=== PATIENT | female | born 1965 | race Caucasian/White ===

== ENCOUNTER 2017-04-13 06:20 | Day surgery (SDC) | payer MEDICARE, MEDICAID ==
[2017-04-13] MEDS ORDERED: MIDAZOLAM HCL 2 MG/2 ML SYR IV PRN ×2 (07:08→08:41)
[2017-04-13 07:14] VITALS: TEMP 97.9
[2017-04-13] MEDS ORDERED: FAMOTIDINE IN SALINE, ISO-OSM 20 MG/50 ML PIGGYBACK IV SCH (07:15)
[2017-04-13] MEDS ORDERED: ACETAMINOPHEN 1,000 MG/100 ML VIAL IV SCH (07:15)
[2017-04-13] MEDS ORDERED: BUPIVACAINE HCL/PF 0.25% 10 ML VIAL INJ ONE (07:24)
[2017-04-13] MEDS ORDERED: MIDAZOLAM HCL 2 MG/2 ML VIAL ONE (07:25)
[2017-04-13] MEDS ORDERED: LIDOCAINE HCL 2% 20 ML VIAL ONE (07:31)
[2017-04-13] MEDS ORDERED: FENTANYL 100 MCG/2 ML VIAL ONE (07:34)
[2017-04-13] MEDS ORDERED: LACTATED RINGERS 1,000 ML IV SCH ×3 (08:00→09:00)
[2017-04-13] MEDS ORDERED: EPHEDrine SULFATE 50 MG/ML VIAL ONE (08:05)
[2017-04-13] MEDS ORDERED: FENTANYL 100 MCG/2 ML VIAL IV PRN (08:41)
[2017-04-13] MEDS ORDERED: MORPHINE SULFATE 10 MG/ML SYR IV PRN (08:41)
[2017-04-13] MEDS ORDERED: ONDANSETRON HCL 4 MG/2 ML VIAL IV PRN (08:41)
[2017-04-13 09:11] VITALS: RESP 15
[2017-04-13 09:31] VITALS: BP 90/52; PULSE 78; O2SAT 93
[2017-04-13 09:50] LABS: BASOPHILS 0.3 % (0.0-2.0); EOSINOPHILS 1.4 % (0.0-6.0); EOSINOPHILS# 0.1 X 10^3uL (0.0-0.4); HEMATOCRIT 29.2 % (36.0-48.0); HEMOGLOBIN 9.9 g/dL (12.0-16.0); LYMPHOCYTES 17.5 % (20.0-40.0); LYMPHOCYTES# 1.4 X 10^3uL (0.8-3.8); MEAN CELL VOLUME 92.2 fL (80.0-100.0); MEAN CORPUSCULAR HEMOGLOBIN 31.4 pg (29.0-35.0); MEAN PLATELET VOLUME 6.4 fL (7.4-10.4); MONOCYTES 7.9 % (2.0-10.0); MONOCYTES# 0.7 X 10^3uL (0.2-1.0); NEUTROPHILS 72.9 % (54.0-75.0); PLATELET COUNT 397 X 10^3uL (130-440); RED BLOOD COUNT 3.17 X 10^6uL (4.20-6.10); WHITE BLOOD COUNT 8.2 X 10^3uL (3.9-10.7)
[2017-04-13 10:13] LABS: A/G RATIO 0.9; ALBUMIN 2.7 g/dL (3.5-5.0); ALKALINE PHOSPHATASE 88 U/L (38-126); ALT 33 U/L (9-52); AST 26 U/L (14-36); BILIRUBIN, TOTAL 0.3 mg/dL (0.2-1.3); BLOOD UREA NITROGEN 15 mg/dL (7-17); CALCIUM 9.3 mg/dL (8.4-10.2); CHLORIDE 99 mmol/L (98-107); EST GLOMERULAR FILTRATION RATE > 60 mL/min; GLUCOSE 94 mg/dL (70-100); SODIUM 136 mmol/L (137-145); TOTAL PROTEIN 5.6 g/dL (6.3-8.2)
--- NOTE | 2017-04-16 15:19 | OPERATIVE REPORT ---
Preop diagnosis: Necrotic right buttock decubitus Postoperative diagnosis: Same Procedure performed: Debridement of 15 x 10 cm right buttock decubitus ulcer. Surgeon: Brad Anesthesia: Mac, by Juan Pablo Santiago CRNA Summary: The patient was taken to the operating room. She was placed in the prone position. Her right buttock was prepped with Betadine. The area was sterilely draped. 0.25% Marcaine without epinephrine was infiltrated. Necrotic tissue was debrided with the cutting current. Areas of bleeding were controlled with the cautery. The skin incision had to be opened superiorly as the wound had undermined significantly. Total size of the wound was 10 x 15 cm. When adequate debridement and hemostasis had been achieved, the wound was irrigated with a liter of fluid through the pulse lavage machine. Surgicel was then tucked into areas around the ischial tuberosity. The wound was then packed with alginate. A Tegaderm dressing was applied. The patient was taken from the operating room to the recovery room. She tolerated the procedure well. SARBJIT
--- NOTE | 2017-04-27 10:43 | PREOPERATIVE H&P ---
History of Present Illness (Rafa Salinas M.D.; 04/12/2017 4:11 PM) The patient is a 51 year old female here for wound assessment. Reason for encounter: wound check. The cause of the wound was a decubitus ulcer. Location : right buttock. The wound has been present for 2 months. The course has been worsening. The last tetanus shot was unknown. Current treatment regimen includes: wound vac and clinitron bed.Results of current therapy: worse. The patient has not improved so far on the Clinitron bed and wound VAC. Today I saw her at tried to debride the area but because of bleeding in the area I stopped. She will need a debridement in the operating room. She had spiked a temp earlier today to 101.6. On my exam I find no source for the pain except for the wound. Therefore I think the debridement will be needed sooner. Problem List/Past Medical (Rafa Salinas M.D.; 04/12/2017 4:12 PM) Nausea and/or vomiting (R11.2) Idiopathic hypotension (I95.0) Chronic insomnia (F51.04) Hypokalemia (276.8) (E87.6) Urinary incontinence (788.30) (R32) Bladder mass (596.89) Vision loss, central, bilateral (H53.413) Juxta-central scotomas just to the left of fixation OU (08/03/15). Memory loss due to medical condition (R41.3) Memory loss related to MS. Edema (782.3) (R60.9) Menstrual migraine without status migrainosus, not intractable (G43.829) Cortical age-related cataract, bilateral (H25.013) Early cataracts OU. Neck pain (723.1) (M54.2) Multiple sclerosis exacerbation (340) Atrophic vaginitis (627.3) (N95.2) Synovitis/Tenosynovitis of foot or ankle (M65.9) Weight loss (783.21) (R63.4) Chronic foot pain (M79.673) Muscle spasms of both lower extremities (M62.838) Tendinosis (M67.90) Tenosynovitis (M65.9) Anxiety disorder (300.00) (F41.9) DUB (626.8) Venous insufficiency (459.81) B-complex deficiency (266.2) Depressive disorder (311) (F32.9) Malnutrition (263.9) (E46) Hypertrophic and atrophic condition of skin (701.9) (L91.9, L90.9) Iron deficiency anemia, unspecified iron deficiency anemia type (D50.9) Lateral epicondylitis (726.32) (M77.10) Chronic constipation (K59.09) Acne (706.1) (L70.9) Fatigue (780.79) (R53.83) Urinary retention (R33.9) Decubitus ulcer of right buttock, stage 4 (L89.314) Hypoxemia (R09.02) Chronic pain syndrome (G89.4) Irregular menses (N92.6) Lumbar pain (M54.5) Dry eye, bilateral (H04.123) Severe dysfunctional tear syndrome OU - post lower lid punctal cautery OU. Degeneration of cervical intervertebral disc (722.4) (M50.90) Tachycardia (R00.0) 24 Hour Holter monitor shows NSR with only 1 PVC and 1 PAC. Perimenopausal menorrhagia (N92.4) Muscle atrophy (M62.50) Esophageal reflux (530.81) Spinal stenosis of cervical region (M48.02) C-spine MRI 02/13/12 shows cervical spinal stenosis. Wheelchair dependent (Z99.3) Osteoporosis of lower leg (M81.0) Hip. Thyroid nodule (241.0) (E04.1) Review of Systems (Rafa Salinas M.D.; 04/12/2017 4:12 PM) General Present- Chills and Fever. Not Present- Feeling well. Skin Present- Skin Problems and Ulcer. Neck Not Present- Neck Pain. Respiratory Not Present- Cough, Difficulty Breathing and Shortness of Breath. Cardiovascular Not Present- Chest Pain and Heart Problems. Gastrointestinal Not Present- Abdominal Pain, Bloating and GI Problems. Neurological Present- Neurological Problems (MS). Endocrine Present- Thyroid Problems (She does have thyroid nodule.). Vitals (Rafa Salinas M.D.; 04/12/2017 4:13 PM) 04/12/2017 4:13 PM Temp.: 101.6F Pulse: 68 (Regular) BP: 128/70 (Sitting, Left Arm, Standard) Physical Exam (Rafa Salinas M.D.; 04/12/2017 4:24 PM) Integumentary Assessment of surgical incision: Location - Groin, Buttocks, Genitalia - right buttock. Wound appearance: - Right - consistent with possible early significant wound infection. Note: The wound has a foul odor to it. Superiorly there is a blackened Slimmey necrotic tissue superior in the wound. This has a foul odor to it. It is clearly worse than the last wound VAC change. Chest and Lung Exam Chest and lung exam reveals -Clear. Cardiovascular Cardiovascular examination reveals -RRR, No murmurs present. Abdomen Inspection Inspection of the abdomen reveals - Soft, Non-tender and Bowel sounds present. Contour - Generalized moderate distention. Assessment & Plan (Rafa Salinas M.D.; 04/12/2017 4:29 PM) Multiple sclerosis exacerbation (340) Decubitus ulcer of right buttock, stage 4 (L89.314) Current Plans Debridement of Skin, Subcutaneous Tissue, and Muscle (36735) Excludes Zafar WINSTON MUSC/FASCIA ADD-ON (62475) USE WITH 21294 Note:She is not getting any better so we will plan to do a adequate debridement in the operating room. I will stop the wound VAC overlying this. I don't think the wound VAC is going to work for her. I am optimistic that the Clinitron bed with dressing changes will be healing this. Informed consent was obtained from her. She has signed the consent and agrees to go ahead. Signed by Rafa Salinas M.D. (04/12/2017 4:31 PM) SARBJIT
== END 2017-04-13 09:35 ==
LOC: SDS 06:20
PROVIDERS: ATTEND Surgery
DX: L89.314 Pressure ulcer of right buttock, stage 4 (principal); G35 Multiple sclerosis; E87.6 Hypokalemia; R32 Unspecified urinary incontinence; R41.3 Other amnesia; D50.9 Iron deficiency anemia, unspecified; M77.10 Lateral epicondylitis, unspecified elbow; R53.83 Other fatigue; E46 Unspecified protein-calorie malnutrition; I87.2 Venous insufficiency (chronic) (peripheral); M62.838 Other muscle spasm; R63.4 Abnormal weight loss; R33.9 Retention of urine, unspecified; R09.02 Hypoxemia; G89.4 Chronic pain syndrome; N92.6 Irregular menstruation, unspecified; M54.5 Low back pain; M50.90 Cervical disc disorder, unspecified, unspecified cervical region; M62.50 Muscle wasting and atrophy, not elsewhere classified, unspecified site; K21.9 Gastro-esophageal reflux disease without esophagitis; M81.0 Age-related osteoporosis without current pathological fracture; E04.1 Nontoxic single thyroid nodule; Z99.3 Dependence on wheelchair; Z79.899 Other long term (current) drug therapy
CPT/HCPCS: 36415; 80053; 84134; 85025; 87070; 87077; 87186; 87205; J2250; J3010

== ENCOUNTER 2017-04-15 12:05 | Inpatient (IN) | payer MEDICARE, MEDICAID ==
[2017-04-15] MEDS ORDERED: POLYETHYLENE GLYCOL 3350 17 GM POWD.PACK PO PRN (12:33)
[2017-04-15] MEDS ORDERED: HOME MEDICATION LIST NEEDED 1 EA EACH MC ONE (12:33)
[2017-04-15] MEDS ORDERED: NORMAL SALINE 1,000 ML IV ONE (12:33)
[2017-04-15] MEDS ORDERED: MAG-AL PLUS XS SUSP 30 ML UDC PO PRN (12:33)
[2017-04-15] MEDS ORDERED: ACETAMINOPHEN 325 MG TABLET PO PRN (12:33)
[2017-04-15] MEDS ORDERED: AMPICILLIN/SULBACTAM 1.5 GM/10 ML VIAL IV ONE (13:07)
[2017-04-15] MEDS ORDERED: NORMAL SALINE MINI-BAG+ 100 ML IV ONE (13:09)
[2017-04-15] MEDS ORDERED: POLYVINYL ALCOHOL 1.4% OPHTH 75 DROP/15 ML BTL EACHEYE PRN (13:57)
[2017-04-15] MEDS ORDERED: ONDANSETRON ODT 4 MG TAB.RAPDIS PO PRN (13:57)
[2017-04-15] MEDS ORDERED: CARBAMIDE PEROXIDE 6.5% OTIC 75 DROP/5 ML BTL EACH EAR PRN (13:57)
[2017-04-15] MEDS ORDERED: OXYBUTYNIN CHLORIDE 5 MG TABLET PO PRN (13:57)
[2017-04-15] MEDS ORDERED: DICLOFENAC 1% GEL 100 APP/100 GM TUBE TOPICAL PRN (13:57)
[2017-04-15] MEDS ORDERED: BISACODYL 10 MG SUPP.RECT RECTAL PRN (13:57)
[2017-04-15] MEDS ORDERED: CALCIUM CARBONATE 300 MG TAB.CHEW PO PRN (13:57)
[2017-04-15 14:19] LABS: ALBUMIN 2.8 g/dL (3.5-5.0); AST 24 U/L (14-36); BILIRUBIN, DIRECT 0.3 mg/dL (0.0-0.4); BILIRUBIN, TOTAL 0.3 mg/dL (0.2-1.3); BLOOD UREA NITROGEN 17 mg/dL (7-17); CHLORIDE 99 mmol/L (98-107); EST GLOMERULAR FILTRATION RATE > 60 mL/min; POTASSIUM 4.3 mmol/L (3.5-5.1); TOTAL PROTEIN 6.2 g/dL (6.3-8.2)
[2017-04-15 14:28] LABS: ALKALINE PHOSPHATASE 82 U/L (38-126); ALT 34 U/L (9-52); CALCIUM 9.2 mg/dL (8.4-10.2); GLUCOSE 135 mg/dL (70-100); SODIUM 135 mmol/L (137-145)
[2017-04-15] MEDS: AMPICILLIN/SULBACTAM 1.5 GM in NORMAL SALINE MINI-BAG+ 100 ML IV SCH ×2 (14:30→20:10)
[2017-04-15] MEDS: NORMAL SALINE 1,000 ML IV ONE ×2 (14:30→16:36)
[2017-04-15] MEDS ORDERED: VANCOMYCIN HCL 1,000 MG in NORMAL SALINE ADDVANTAGE 250 ML IV SCH (14:30)
[2017-04-15 14:38] LABS: HEMATOCRIT 28.5 % (36.0-48.0); HEMOGLOBIN 9.8 g/dL (12.0-16.0); MEAN CELL VOLUME 91.2 fL (80.0-100.0); MEAN CORPUS. HGB CONCENTRATION 34.3 g/dL (32.0-36.0); MEAN CORPUSCULAR HEMOGLOBIN 31.3 pg (29.0-35.0); MEAN PLATELET VOLUME 6.4 fL (7.4-10.4); PLATELET COUNT 474 X 10^3uL (130-440); RED BLOOD COUNT 3.12 X 10^6uL (4.20-6.10); RED CELL DISTRIBUTION WIDTH 12.1 % (11.5-14.5); WHITE BLOOD COUNT 13.9 X 10^3uL (3.9-10.7)
[2017-04-15 14:39] LABS: BAND% (Manual) 19 % (0.0-1.0); LYMPHOCYTE % (Manual) 5 % (20.0-40.0); MONOCYTE % (Manual) 10 % (2.0-10.0); NEUTROPHIL % (Manual) 66 % (54.0-75.0); PLATELET ESTIMATE INCREASED
[2017-04-15] MEDS: ACETAMINOPHEN 325 MG TABLET PO PRN (15:14)
[2017-04-15] MEDS: BACLOFEN 10MG TABLET PO SCH ×2 (15:15→18:44)
[2017-04-15] MEDS: VANCOMYCIN HCL 1,000 MG in NORMAL SALINE ADDVANTAGE 250 ML IV SCH (16:15)
[2017-04-15] MEDS: traMADol HCL 50 MG TABLET PO PRN ×2 (17:47→23:41)
[2017-04-15] MEDS: ACETAMINOPHEN 325 MG TABLET PO SCH (20:09)
[2017-04-15] MEDS ORDERED: SERTRALINE HCL 50 MG TABLET PO SCH (21:00)
[2017-04-15] MEDS ORDERED: ZOLPIDEM TARTRATE 5 MG TABLET PO SCH (21:00)
[2017-04-15] MEDS: MINOCYCLINE HCL 50 MG PO SCH (21:16)
[2017-04-15] MEDS: OPANA 10 MG PO SCH (22:19)
[2017-04-15] MEDS: OPANA PO SCH (22:20)
[2017-04-15] MEDS: POTASSIUM CHLORIDE/NS 1,000 MEQ/50,000 ML BAG IV SCH (23:14)
[2017-04-16 00:18] VITALS: RESP 20
[2017-04-16] MEDS: AMPICILLIN/SULBACTAM 1.5 GM in NORMAL SALINE MINI-BAG+ 100 ML IV SCH ×2 (01:27→08:01)
[2017-04-16] MEDS: BACLOFEN 10MG TABLET PO SCH ×4 (01:27→06:55)
[2017-04-16] MEDS: ACETAMINOPHEN 325 MG TABLET PO PRN (01:46)
[2017-04-16] MEDS: VANCOMYCIN HCL 1,000 MG in NORMAL SALINE ADDVANTAGE 250 ML IV SCH (05:25)
[2017-04-16] MEDS: traMADol HCL 50 MG TABLET PO PRN (06:56)
[2017-04-16 06:59] VITALS: BP 81/45; PULSE 104; TEMP 99.6; O2SAT 90
[2017-04-16] MEDS: POTASSIUM CHLORIDE/NS 1,000 MEQ/50,000 ML BAG IV SCH (07:04)
[2017-04-16 07:17] LABS: A/G RATIO 0.8; ALBUMIN 2.8 g/dL (3.5-5.0); ALKALINE PHOSPHATASE 84 U/L (38-126); ALT 38 U/L (9-52); AST 23 U/L (14-36); BILIRUBIN, TOTAL 0.3 mg/dL (0.2-1.3); BLOOD UREA NITROGEN 9 mg/dL (7-17); CALCIUM 8.8 mg/dL (8.4-10.2); CHLORIDE 103 mmol/L (98-107); EST GLOMERULAR FILTRATION RATE > 60 mL/min; GLUCOSE 100 mg/dL (70-100); POTASSIUM 4.4 mmol/L (3.5-5.1); SODIUM 137 mmol/L (137-145); TOTAL PROTEIN 6.2 g/dL (6.3-8.2)
[2017-04-16 07:20] LABS: BASOPHIL# 0.1 X 10^3uL (0.0-0.1); BASOPHILS 0.9 % (0.0-2.0); EOSINOPHILS 1.1 % (0.0-6.0); EOSINOPHILS# 0.1 X 10^3uL (0.0-0.4); HEMATOCRIT 27.4 % (36.0-48.0); HEMOGLOBIN 9.3 g/dL (12.0-16.0); LYMPHOCYTES 17.1 % (20.0-40.0); MEAN CELL VOLUME 92.4 fL (80.0-100.0); MEAN CORPUSCULAR HEMOGLOBIN 31.4 pg (29.0-35.0); MEAN PLATELET VOLUME 6.3 fL (7.4-10.4); MONOCYTES 5.9 % (2.0-10.0); MONOCYTES# 0.7 X 10^3uL (0.2-1.0); NEUTROPHILS# 8.7 X 10^3uL (2.6-6.7); PLATELET COUNT 429 X 10^3uL (130-440); RED BLOOD COUNT 2.97 X 10^6uL (4.20-6.10); RED CELL DISTRIBUTION WIDTH 12.2 % (11.5-14.5); WHITE BLOOD COUNT 11.6 X 10^3uL (3.9-10.7)
--- NOTE | 2017-04-16 08:28 | DC SUMMARY: IM Note ---
Discharge Summary: IM/Peds Provider: Date of Admission: 04/15/17 Admitting Provider: MIN RICHARDSON Attending Provider: CAIN VALLE MD Discharging Provider: CAIN VALLE MD Primary Care Provider: Discharge Date: 04/16/17 Consults: 04/15/17 12:38 Surgical Consult [CONS] Routine Reason: Reassess wound if further debridement needed - Diagnosis (1) Decubitus skin ulcer Status: Chronic Qualifiers: Pressure ulcer location: buttock Pressure ulcer stage: stage 4 Laterality : right Qualified Code(s): L89.314 - Pressure ulcer of right buttock, stage 4 (2) Fever Status: Acute (3) Leukocytosis Status: Acute Qualifiers: Leukocytosis type: bandemia Qualified Code(s): D72.825 - Bandemia (4) Anemia Status: Acute Qualifiers: Anemia type: unspecified type Qualified Code(s): D64.9 - Anemia, unspecified (5) Multiple sclerosis Status: Chronic (6) Malnutrition Status: Chronic (7) Sepsis Status: Acute Qualifiers: Sepsis type: sepsis due to unspecified organism Qualified Code(s): A41.9 - Sepsis, unspecified organism (8) Hypotension Status: Acute (9) Tachycardia Status: Acute (10) Dehydration Status: Acute (11) Chronic pain Status: Chronic (12) UTI (urinary tract infection) Status: Acute Qualifiers: Urinary tract infection type: catheter-associated UTI Indwelling urinary catheter type: indwelling urethral catheter Encounter type: initial encounter Qualified Code(s): T83.511A - Infection and inflammatory reaction due to indwelling urethral catheter, initial encounter; N39.0 - Urinary tract infection , site not specified (13) Urinary retention Status: Acute - Time Spent with Patient Total time spent providing and/or coordinating discharge services: Time with patient DS: Greater than 30 minutes Discharge - Patient/Caregiver Discharge Instructions Activity Level: Bedrest. Diet: Regular. Overall discharge status: patient is not back to baseline Print Language: INDONESIAN Disposition: [facility] Discharge Summary Data - Medication History Medication History: Home Medications Acetaminophen [Tylenol] 325 mg PO Q4H PRN 04/15/17 Baclofen [Lioresal] 10 mg PO BID@0130,1500 04/15/17 Baclofen [Lioresal] 20 mg PO BID@0700,1900 04/15/17 Bisacodyl [Dulcolax] 10 mg LA PRN PRN 04/15/17 Calcium Carbonate [Tums X-Str] 300 - 600 mg PO Q6H PRN 04/15/17 Carbamide Peroxide 6.5% Otic [Debrox 6.5% Otic] 2 drop EACH EAR BID PRN Diclofenac 1% Gel [Voltaren Top Gel 1%*] 1 gm TOPICAL QID PRN 04/15/17 Docusate Sodium [Colace*] 100 mg PO DAILY 04/15/17 Estradiol Vag Cream [Estrace Vag Cr*] 1 gm VAGINALLY 3XW 04/15/17 Ibuprofen [Ibuprofen*] 600 mg PO PRN PRN 04/15/17 Minocycline HCl 50 mg PO BID 04/15/17 Na Phos,M-B/Na Phos,Di-Ba [Fleet Enema] 133 ml LA PRN PRN 04/15/17 Naloxone HCl [Narcan] 0.4 mg SUBCUT PRN PRN 04/15/17 Ondansetron Odt [Zofran Odt] 4 mg PO Q6H PRN 04/15/17 Oxybutynin Chloride [Ditropan*] 5 mg PO DAILY PRN 04/15/17 Oxycodone HCl/Acetaminophen [Percocet 10-325 mg Tablet] 1 tab PO TID@1000,1400, 2000 04/15/17 Oxymorphone HCl [Opana ER] 15 mg PO BID@1000,2200 04/15/17 Polyethylene Glycol 3350 [Miralax*] 1 packet PO HS 04/15/17 Polyvinyl Alcohol 1.4% Ophth [Teargen*] 1 drop EACHEYE PRN PRN 04/15/17 Probiotic [Anahi-Q Capsule] 1 cap PO DAILY 04/15/17 Sertraline HCl [Zoloft*] 100 mg PO HS 04/15/17 Zolpidem Tartrate [Ambien*] 10 mg PO HS 04/15/17 traMADol HCL [Ultram*] 50 mg PO Q4H PRN 04/15/17 Inpatient Medications 04/15/17 12:33 Mag-Al Plus Xs Susp [Maalox Liquid] 30 ml PO Q4H PRN Polyethylene Glycol 3350 [miraLAX] 17 gm PO BID PRN 04/15/17 12:38 Vancomycin Pharmacy To Dose [Vanco Pharmacy To Dose] 1 ea MISC PRN PRN 04/15/17 13:00 Potassium Chloride/Ns [KCl 20 Meq in Ns 1L] 1,000 meq in 50,000 ml IV CONT 04/15/17 13:57 Acetaminophen [Tylenol] 325 mg PO Q4H PRN Bisacodyl [Dulcolax] 10 mg RECTAL PRN PRN Calcium Carbonate [Tums X-Str] 300 - 600 mg PO Q6H PRN Carbamide Peroxide 6.5% Otic [Debrox 6.5% Otic] 2 drop EACH EAR BID PRN Diclofenac 1% Gel [Voltaren Gel 1%] 1 oscar TOPICAL QID PRN Ondansetron Odt [Zofran Odt] 4 mg PO Q6H PRN Oxybutynin Chloride [Ditropan] 5 mg PO DAILY PRN Polyvinyl Alcohol 1.4% Ophth [Teargen] 1 drop EACHEYE PRN PRN traMADol HCL [Ultram] 50 mg PO Q4H PRN 04/15/17 14:00 Ampicillin/Sulbactam [Unasyn] 1.5 gm Normal Saline Mini-Bag+ [Sodium Chloride 100 ml Mini-Bag Plus] 100 ml IV Q6H oxyCODONE HCL IR [Oxy Ir] 10 mg PO TID@1000,1400,199904/15/17 15:00 Baclofen [Lioresal] 10 mg PO BID@0130,1500 04/15/17 17:00 Vancomycin HCl [Vancocin] 1,000 mg Normal Saline Addvantage [Sodium Chloride 0.9% Addv 250 ml] 250 ml IV Q12H 04/15/17 19:00 Baclofen [Lioresal] 20 mg PO BID@0700,1900 04/15/17 20:00 Acetaminophen [Tylenol] 325 mg PO TID@1000,1400,199904/15/17 21:00 Minocycline HCl [Minocycline HCl] 50 mg PO BID Sertraline HCl [Zoloft] 100 mg PO HS Zolpidem Tartrate [Ambien] 10 mg PO HS 04/15/17 22:00 Oxymorphone HCl [Opana ER] 0 mg PO BID@1000,2200 Oxymorphone Hcl [Opana Er] 0 mg PO BID@1000,2200 04/16/17 09:00 Docusate Sodium [Colace] 100 mg PO DAILY Probiotic [Anahi-Q Capsule] 1 cap PO DAILY Procedures and tests throughout hospitalization: Completed Lab Orders 04/15/17 12:33 BASIC METABOLIC PANEL [CHEM] Routine CBC WITHOUT A DIFFERENTIAL [HEM] Routine HEPATIC PANEL [CHEM] Routine MANUAL DIFFERENTIAL [HEM] Routine 04/16/17 06:45 CBC AUTO DIF, MDIF/RMOR IF IND [HEM] AMDRAW cmp [COMPREHENSIVE METABOLIC PANEL] [CHEM] AMDRAW Pending Orders 04/15/17 12:33 Admit: Inpatient Routine Activity: Turn and position Q2H Intake and Output QSHIFT I&O Obtain weight PRN Resuscitation Status Routine Telemetry monitoring CONTINUOUS TELE Titrate Oxygen TITRATE TO >90% Vital Signs ROUTINE VITALS (Q4H) Associate Professor Of Biblical Studies Consult [CM] Routine UA W/ MICRO -CULTURE IF IND [URINE] Routine Mag-Al Plus Xs Susp [Maalox Liquid] 30 ml PO Q4H PRN Polyethylene Glycol 3350 [miraLAX] 17 gm PO BID PRN 04/15/17 12:37 Miscellaneous Care Order . 04/15/17 12:38 NPO After midnight 0000 Surgical Consult [CONS] Routine Vancomycin Pharmacy To Dose [Vanco Pharmacy To Dose] 1 ea MISC PRN PRN 04/15/17 13:00 Potassium Chloride/Ns [KCl 20 Meq in Ns 1L] 1,000 meq in 50,000 ml IV CONT 04/15/17 13:57 Acetaminophen [Tylenol] 325 mg PO Q4H PRN Bisacodyl [Dulcolax] 10 mg RECTAL PRN PRN Calcium Carbonate [Tums X-Str] 300 - 600 mg PO Q6H PRN Carbamide Peroxide 6.5% Otic [Debrox 6.5% Otic] 2 drop EACH EAR BID PRN Diclofenac 1% Gel [Voltaren Gel 1%] 1 oscar TOPICAL QID PRN Ondansetron Odt [Zofran Odt] 4 mg PO Q6H PRN Oxybutynin Chloride [Ditropan] 5 mg PO DAILY PRN Polyvinyl Alcohol 1.4% Ophth [Teargen] 1 drop EACHEYE PRN PRN traMADol HCL [Ultram] 50 mg PO Q4H PRN 04/15/17 14:00 Ampicillin/Sulbactam [Unasyn] 1.5 gm Normal Saline Mini-Bag+ [Sodium Chloride 100 ml Mini-Bag Plus] 100 ml IV Q6H oxyCODONE HCL IR [Oxy Ir] 10 mg PO TID@1000,1400,199904/15/17 14:30 BLOOD CULTURE [BC] Urgent 04/15/17 15:00 Baclofen [Lioresal] 10 mg PO BID@0130,1500 04/15/17 17:00 Vancomycin HCl [Vancocin] 1,000 mg Normal Saline Addvantage [Sodium Chloride 0.9% Addv 250 ml] 250 ml IV Q12H 04/15/17 19:00 Baclofen [Lioresal] 20 mg PO BID@0700,1900 04/15/17 20:00 Acetaminophen [Tylenol] 325 mg PO TID@1000,1400,199904/15/17 21:00 Minocycline HCl [Minocycline HCl] 50 mg PO BID Sertraline HCl [Zoloft] 100 mg PO HS Zolpidem Tartrate [Ambien] 10 mg PO HS 04/15/17 22:00 Oxymorphone HCl [Opana ER] 0 mg PO BID@1000,2200 Oxymorphone Hcl [Opana Er] 0 mg PO BID@1000,2200 04/16/17 09:00 Docusate Sodium [Colace] 100 mg PO DAILY Probiotic [Anahi-Q Capsule] 1 cap PO DAILY 04/16/17 Breakfast Nothing By Mouth [DIET] 04/17/17 04:30 vanco tr [VANCOMYCIN TROUGH] [CHEM] Routine Labs on day of discharge: Labs from last 24 hours 04/16/17 04/15/17 06:45 12:33 WBC 11.6 H 13.9 H RBC 2.97 L 3.12 L Hgb 9.3 L 9.8 L Hct 27.4 L 28.5 L MCV 92.4 91.2 MCH 31.4 31.3 MCHC 34.0 34.3 RDW 12.2 12.1 Plt Count 429 474 H MPV 6.3 L 6.4 L Total Counted 100 Neutrophils % 75.0 Cancelled Neutrophils % (Manual) 66 Band Neuts % (Manual) 19 H Lymphocytes % 17.1 L Cancelled Lymphocytes % (Manual) 5 L Monocytes % (Manual) 10 Eosinophils % 1.1 Cancelled Basophils % 0.9 Cancelled Neutrophils # 8.7 H Cancelled Lymphocytes # 2.0 Cancelled Monocytes 5.9 Cancelled Monocytes # 0.7 Cancelled Eosinophils # 0.1 Cancelled Basophils # 0.1 Cancelled Platelet Estimate Increased Hypochromic-Microcytic 10-19% of cells Anisocytosis 10-19% of cells Sodium 137 135 L Potassium 4.4 4.3 Chloride 103 99 Carbon Dioxide 26 29 BUN 9 17 Creatinine 0.4 L 0.5 GFR Calculation > 60 > 60 Glucose 100 135 H Calcium 8.8 9.2 Total Bilirubin 0.3 0.3 Direct Bilirubin 0.3 AST 23 24 ALT 38 34 Alkaline Phosphatase 84 82 Total Protein 6.2 L 6.2 L Albumin 2.8 L 2.8 L Albumin/Globulin Ratio 0.8 - Impressions Please see admission history and physical for further details. Rosa was admitted yesterday directly from the [facility] for sepsis related to chronic decubitus ulcer right buttock. She had her third debridement of the decubitus ulcer in the OR on 04/13/17 with general surgeon, Dr. Rafa Salinas. She has had fevers to 101.6, chills, and sweats. She has a history of low BPs at her baseline. However despite IVF since admission, her BP this morning is 81 /45 with HR low 100s. Her preliminary wound cultures are growing Group D Non- Enterococcus. Her UCx is growing MRSA. She was started on Vancomycin and Unasyn yesterday with her admission. Her labs revealed leukocytosis with bandemia and a new anemia. Dr. Salinas stated that with each debridement, she has had a lot of bleeding. She has had a history of chroninc malnutrition with a prior baseline albumin 3.2. Her albumin is now 2.8. She has chronic pain related to her MS and is on chronic narcotics. Her pain with the decubitus ulcer has not been well-controlled. I discussion with Rosa and Dr. Salinas, we have determined that Rosa needs to be transferred to [facility] under the care of hospitalists for her sepsis. She will go to the ICU. The wound care team will be consulted. Rosa may require a muscle flap for her decubitus ulcer. We do not have these services available here at [facility]. IM: Discharge Physical Exam - I&O/Vital Signs I&O: Intake & Output 04/15/17 04/16/17 04/16/17 21:59 05:59 13:59 Intake Total 1587 2621 Output Total 950 1550 Balance 637 1071 Intake: IV 827 1621 Right Hand 827 1621 Oral 760 1000 Output: Urine 950 1550 Other: Urine Appearance Clear Clear Urine Color Yellow Yellow Voiding Method Indwelling Catheter Indwelling Catheter Vital Signs: Last Vital Signs Temp 37.6 C 04/16/17 06:58 Pulse 104 H 04/16/17 06:58 Resp 20 04/16/17 06:58 BP 81/45 04/16/17 06:58 Pulse Ox 90 04/16/17 06:58 Oxygen Delivery Method Room Air - Constitutional General appearance: Present: cooperative, acute distress (Secondary to pain and illness. ) - Head Head exam: Present: atraumatic, normocephalic - Eye Eye exam: Present: EOMI, PERRL - ENT ENT exam: Present: mucous membranes dry - Neck Neck exam: Present: other (Decreased ROM at her baseline 2' DDD neck. ). Absent : meningismus - Respiratory Respiratory exam: Present: clear. Absent: accessory muscle use, respiratory distress - Cardiovascular Cardiovascular exam: Present: RRR, tachycardia. Absent: systolic murmur - GI/Abdominal GI/Abdominal exam: Present: normal bowel sounds, soft. Absent: mass, organomegaly, tenderness - Extremities Exam Extremities exam: Present: tenderness (Chroninc BLE pain. ). Absent: calf tenderness, edema - Neurological Exam Neurological exam: Present: alert, CN II-XII intact, oriented X3, other ( Significant atrophy BLE with contractures. ) - Psychiatric Psychiatric exam: Present: anxious, depressed
[2017-04-16] MEDS: ACETAMINOPHEN 325 MG TABLET PO SCH (09:00)
[2017-04-16] MEDS ORDERED: DOCUSATE SODIUM 100 MG CAPSULE PO SCH (09:00)
[2017-04-16] MEDS ORDERED: PROBIOTIC 1 CAP CAPSULE PO SCH (09:00)
[2017-04-16] MEDS: MINOCYCLINE HCL 50 MG PO SCH (09:02)
[2017-04-16 09:04] LABS: C-REACTIVE PROTEIN > 90.0 mg/L (<10.0)
[2017-04-16] MEDS: OPANA PO SCH (09:04)
[2017-04-16] MEDS: OPANA 10 MG PO SCH (09:04)
[2017-04-16 09:05] LABS: C-REACTIVE PROTEIN > 90.0 mg/L (<10.0)
[2017-04-16] MEDS ORDERED: NOREPINEPHRINE BITARTRATE 4 MG/4 ML VIAL IV ONE (09:41)
[2017-04-16] MEDS ORDERED: NORMAL SALINE 250 ML IV ONE (09:42)
--- NOTE | 2017-04-16 09:53 | OPERATIVE REPORT ---
History of Present Illness (Rafa Salinas M.D.; 04/12/2017 4:11 PM) The patient is a 51 year old female here for wound assessment. Reason for encounter: wound check . The cause of the wound was a decubitus ulcer . Location: right buttock . The wound has been present for 2 months . The course has been worsening . The last tetanus shot was unknown . Current treatment regimen includes: wound vac and other (clinitron bed.) . Results of current therapy: worse . The patient has not improved so far on the Clinitron bed and wound VAC. Today I saw her at tried to debride the area but because of bleeding in the area I stopped. She will need a debridement in the operating room. She had spiked a temp earlier today to 101.6. On my exam I find no source for the pain except for the wound. Therefore I think the debridement will be needed sooner. Problem List/Past Medical (Rafa Salinas M.D.; 04/12/2017 4:12 PM) Nausea and/or vomiting (R11.2) Falls frequently (V15.88) Idiopathic hypotension (I95.0) Specific muscle disorder (728.3) Chronic insomnia (F51.04) Blister of left foot, initial encounter (S90.822A) Hypokalemia (276.8) (E87.6) Urinary incontinence (788.30) (R32) Bladder mass (596.89) Vision loss, central, bilateral (H53.413) Juxta-central scotomas just to the left of fixation OU (08/03/15). Memory loss due to medical condition (R41.3) Memory loss related to MS. Edema (782.3) (R60.9) Menstrual migraine without status migrainosus, not intractable (G43.829) Cortical age-related cataract, bilateral (H25.013) Early cataracts OU. Neck pain (723.1) (M54.2) Urinary tract infection associated with catheterization of urinary tract, unspecified indwelling urinary catheter type, sequela (T83.511S) Pneumonia of lower lobe due to infectious organism, unspecified laterality ( J18.1) Myositis of left foot, unspecified myositis type (M60.872) 06/22 MRI left foot shows myositis, probabaly inflammatory type, of left foot with associated tendonosis and muscle atrophy. Multiple sclerosis exacerbation (340) Atrophic vaginitis (627.3) (N95.2) Synovitis/Tenosynovitis of foot or ankle (M65.9) Weight loss (783.21) (R63.4) Chronic foot pain (M79.673) Muscle spasms of both lower extremities (M62.838) Tendinosis (M67.90) Tenosynovitis (M65.9) Anxiety disorder (300.00) (F41.9) DUB (626.8) Venous insufficiency (459.81) Decubitus ulcer of coccygeal region, unspecified pressure ulcer stage (L89.159) Chronic nonmalignant pain (G89.29) Exposure to influenza (Z20.828) B-complex deficiency (266.2) Depressive disorder (311) (F32.9) Malnutrition (263.9) (E46) Hypertrophic and atrophic condition of skin (701.9) (L91.9, L90.9) Iron deficiency anemia, unspecified iron deficiency anemia type (D50.9) Lateral epicondylitis (726.32) (M77.10) Chronic constipation (K59.09) Acne (706.1) (L70.9) Fatigue (780.79) (R53.83) Aspiration pneumonia of left lower lobe due to regurgitated food (J69.0) Urinary retention (R33.9) Suspected deep tissue injury of unknown depth (T14.8) Right ischial tuberosity. Abnormal thyroid screen (blood) (R94.6) Rotator cuff strain (840.4) Decubitus ulcer of right buttock, stage 4 (L89.314) Stress fracture of tibia or fibula (733.93) Accessory skin tags (757.39) Hypoxemia (R09.02) Chronic pain syndrome (G89.4) Irregular menses (N92.6) Healing pressure ulcer stage I (707.00) Lumbar pain (M54.5) Dry eye, bilateral (H04.123) Severe dysfunctional tear syndrome OU - post lower lid punctal cautery OU. Degeneration of cervical intervertebral disc (722.4) (M50.90) Tachycardia (R00.0) 24 Hour Holter monitor shows NSR with only 1 PVC and 1 PAC. Perimenopausal menorrhagia (N92.4) Muscle atrophy (M62.50) Esophageal reflux (530.81) Dehydration (E86.0) Spinal stenosis of cervical region (M48.02) C-spine MRI 02/13/12 shows cervical spinal stenosis. Yeast vaginitis (112.1) Wheelchair dependent (Z99.3) Osteoporosis of lower leg (M81.0) Hip. Contraceptive surveillance, unspecified (V25.40) Closed fractures of fourth and fifth meatatarsals (825.25) (S92.353A) Irritable colon (564.1) Carpal tunnel syndrome (354.0) (G56.00) Pressure ulcer of hip (707.04) Altered mental status, unspecified altered mental status type (R41.82) Hypotension due to drugs (I95.2) Thyroid nodule (241.0) (E04.1)07/21/201307/20 Thyroid U/S shows thyroid is normal sized with 0.9cm indeterminant mixed echogenic nodule of inferior pole of left lobe. Surgical consult, Dr. Salinas who recommends yearly thyroid U/S and exams. 01/22: Repeat thyroid ultrasound shows nodule has decreased in size. It does not need criteria for biopsy. No further thyroid ultrasounds are needed. Review of Systems (Rafa Salinas M.D.; 04/12/2017 4:12 PM) General Present- Chills and Fever. Not Present- Feeling well. Skin Present- Skin Problems and Ulcer. Neck Not Present- Neck Pain. Respiratory Not Present- Cough, Difficulty Breathing and Shortness of Breath. Cardiovascular Not Present- Chest Pain and Heart Problems. Gastrointestinal Not Present- Abdominal Pain, Bloating and GI Problems. Neurological Present- Neurological Problems (MS). Endocrine Present- Thyroid Problems (She does have thyroid nodule.). Vitals (Rafa Salinas M.D.; 04/12/2017 4:13 PM) 04/12/2017 4:13 PM Temp.: 101.6F Pulse: 68 (Regular) BP: 128/70 (Sitting, Left Arm, Standard) Physical Exam (Rafa Salinas M.D.; 04/12/2017 4:24 PM) Integumentary Assessment of surgical incision: Location - Groin, Buttocks, Genitalia - right buttock. Wound appearance: - Right - consistent with possible early significant wound infection. Note: The wound has a foul odor to it. Superiorly there is a blackened Slimmey necrotic tissue superior in the wound. This has a foul odor to it. It is clearly worse than the last wound VAC change. Chest and Lung Exam Chest and lung exam reveals -Clear. Cardiovascular Cardiovascular examination reveals -RRR, No murmurs present. Abdomen Inspection Inspection of the abdomen reveals - Soft, Non-tender and Bowel sounds present. Contour - Generalized moderate distention. Assessment & Plan (Rafa Salinas M.D.; 04/12/2017 4:29 PM) Multiple sclerosis exacerbation (340) Decubitus ulcer of right buttock, stage 4 (L89.314) Current Plans Debridement of Skin, Subcutaneous Tissue, and Muscle (08930) Excludes Zafar WINSTON MUSC/FASCIA ADD-ON (88923) USE WITH 50637 Note:She is not getting any better so we will plan to do a adequate debridement in the operating room. I will stop the wound VAC overlying this. I don't think the wound VAC is going to work for her. I am optimistic that the Clinitron bed with dressing changes will be healing this. Informed consent was obtained from her. She has signed the consent and agrees to go ahead. Signed by Rafa Salinas M.D. (04/12/2017 4:31 PM) [id number]
[2017-04-16] MEDS ORDERED: NORMAL SALINE 500 ML IV ONE (09:57)
[2017-04-16 10:04] LABS: LACTATE 0.5 mmol/L (0.7-2.1)
[2017-04-16 10:17] LABS: ERYTHROCYTE SEDIMENTATION RATE 68 MM/HR (0-20)
[2017-04-16] MEDS ORDERED: ONDANSETRON HCL 4 MG/2 ML VIAL ONE (10:19)
--- NOTE | 2017-04-16 11:32 | HISTORY & PHYSICAL ---
History of Present Illness (Marjorie Law DO; 04/15/2017 12:12 PM) Patient words: CC: wound infection HPI: Patient is a 51 yo F who has been at [facility] for last 5 years related to progressive MS. She has had a wound on her right buttock since January that has been treated with a wound vac. On the wound noted to be worsening and patient was febrile to 101.6. She was subsequently taken to OR on 04/13 for further surgical debridement, cultures done at that time. No antibiotics have been started however at this time. Today when nursning came to assess she noted significant drainage from wound with odor. Patient continues to have low grade temperature. Her blood pressure is slighty lower than typical for her and her heart rate is slightly higher. Nursing contacted me for concern patient may be showing signs of sepsis. Rosa states overall she has been feeling ill. Much more uncomfortable than typical- having slight headache/neck pain. On with her fever she was noted to be posturing somewhat and having some difficulties breathing (resolved quickly). has been on regular tylenol use and continues to run temperature of 99.9. Agree that transition to med surg for fluid hydration/empric antibiotics is recommended prior to symptoms getting any worse. Culture from Sunday is growing large amount of gram positive cocci (gram stain with both gram positive and gram negative)- final sensitivites not available. Labs from Sunday did also demonstrate anemia (Dr. Salinas did mention bleeding with procedure). Will need follow up CBC as progressive anemia could defentily explain hypotension and tachycardia as well. The patient is a 51 year old female. Problem List/Past Medical (Marjorie Law DO; 04/15/2017 12:16 PM) Decubitus ulcer of right buttock, stage 4 (L89.314) Hypotension due to drugs (I95.2) Osteoporosis of lower leg (M81.0) Hip. Spinal stenosis of cervical region (M48.02) C-spine MRI 02/13/12 shows cervical spinal stenosis. Dehydration (E86.0) Muscle atrophy (M62.50) Tachycardia (R00.0) 24 Hour Holter monitor shows NSR with only 1 PVC and 1 PAC. Degeneration of cervical intervertebral disc (722.4) (M50.90) Lumbar pain (M54.5) Chronic pain syndrome (G89.4) Hypoxemia (R09.02) Urinary retention (R33.9) Fatigue (780.79) (R53.83) Malnutrition (263.9) (E46) Hypertrophic and atrophic condition of skin (701.9) (L91.9, L90.9) Iron deficiency anemia, unspecified iron deficiency anemia type (D50.9) Depressive disorder (311) (F32.9) Chronic insomnia (F51.04) Myositis of foot (M60.879) Neck pain (M54.2) Allergies (Marjorie Law DO; 04/15/2017 12:16 PM) No Known Drug Mqceabevb00/19/2015 Family History (Marjorie Law DO; 04/15/2017 12:16 PM) Mother Healthy: Vishal in [place] No Significant Family Ocular History Sister Renée in [place]: [place] Father Healthy: Al in [place] Family Members In General paternal uncle-colon ca-mid 60's; No HTN, CAD, DM, Breast Social History (Marjorie Law DO; 04/15/2017 12:16 PM) Tobacco Use Former smoker, Age quit smoking. 41 Alcohol Use Does not drink alcohol. Marital status Single Medication History (Marjorie Law DO; 04/15/2017 12:16 PM) Ambien (10MG Tablet, 1 Oral Each evening as needed, Taken starting 10/16/2016) Active. (Faxed to [facility] at [phone]. [facility].) Tri-Sprintec (0.18/0.215/0.25MG-35 MCG Tablet, 1 Oral daily, Taken starting ) Active. Baclofen (20MG Tablet, 1 Oral three times daily, Taken starting 08/27/2012) Active. (faxed to [facility]. New dose confirmed with Dr. Scuhmacher.) Zoloft (100MG Tablet, 1 Oral daily, Taken starting 11/05/2013) Active. Valium (5MG Tablet, 1 Oral three times daily, Taken starting 03/27/2016) Active. (Faxed to [facility] at [phone], with Dr. Law's signature on 03/25/2016. hair specialist care pt. Diagnosis: Multiple sclerosis (340) (G35)) Percocet (10-325MG Tablet, 1 Oral every four to six hours as needed for pain, Taken starting 03/28/2017) Active. (faxed to [facility] at [phone]) OxyCODONE HCl (5MG Tablet, 1 Oral every 4 hours as needed pain, Taken starting 06/19/2016) Active. ([facility] care facility) Calcium Carbonate (600MG Tablet, 1 (one) Tablet Oral daily, Taken starting ) Active. ([facility]ed to [facility] at [phone].) Opana ER (10MG Tab 12HR Deter, 1 (one) Oral two times daily, Taken starting 04/2017) Active. (Take with Opana ER 5mg tablet twice daily. Faxed to [facility] at [phone]. Dr. Law covering for Dr. Youngblood.) Opana ER (5MG Tab 12HR Deter, 1 (one) Oral two times daily, Taken starting ) Active. (Please take with Opana ER 10mg twice daily Faxed to [facility] at [phone]) Estrace (0.1MG/GM Cream, 1 (one) gram Vaginal per vagina 3 times per week., Taken starting 10/19/2015) Active. TraMADol HCl (50MG Tablet, 1 tablet Oral every 4 hours as needed, max is 400 mg daily, Taken starting 04/11/2017) Active. (faxed to [facility].) Artificial Tears (Allscrips) (1 drop both eyes Ophthalmic four times daily and prn) Active. [place] Calcium + D ([id number]-[id number] Tablet, Oral) Active. Debrox (6.5% Solution, Otic) Active. Ferrous Sulfate (325 (65 Fe)MG Tablet, Oral) Active. Gabapentin (300MG Capsule, Oral) Active. Ibuprofen (200MG Capsule, Oral as needed) Active. Voltaren (1% Gel, Transdermal) Active. Colace (100MG Capsule, 1 Oral at bedtime) Active. Cranberry Fruit (475MG Capsule, 1 tablet Oral daily) Active. Ensure Plus (1 can Oral two times daily) Active. Fleets Enema (OTC) as needed (per rectum as needed) Active. Anahi-Q ( L.acidoph & parac-s.therm-bif (OTC) (1 tablet daily) Active. Minocycline HCl (50MG Capsule, 1 Oral two times daily) Active. MiraLax (1 in 8oz water Oral two times daily, as needed) Active. Past Surgical History (Marjorie Law DO; 04/15/2017 12:16 PM) Right cervical laser the late Cervical dyspasia: All F/U paps nl Review of Systems (Marjorie Law DO; 04/15/2017 12:15 PM) General Present- Chills, Fatigue and Malaise. Not Present- Feeling well and Fever. Skin Present- Ulcer. HEENT Present- Headache. Not Present- Nasal Congestion, Sore Throat and Visual Disturbances. Neck Present- Neck Pain. Respiratory Not Present- Cough and Shortness of Breath. Cardiovascular Not Present- Abnormal Blood Pressure, Chest Pain and Edema. Gastrointestinal Present- Nausea. Not Present- Abdominal Pain, Constipation and Diarrhea. Note: decreased appetite Female Genitourinary Not Present- Dysuria (chronic hernandez) and Hematuria. Musculoskeletal Present- Back Pain, Joint Pain and Muscle Pain. Neurological Present- Weakness In Extremities. Not Present- Dizziness. Note: no change from baseline neurological concerns Endocrine Not Present- Cold Intolerance and Heat Intolerance. Hematology Not Present- Abnormal Bleeding (surgeon did not more than anticipated blood loss with procedure) and Easy Bruising. Vitals (Marjorie Law DO; 04/15/2017 12:17 PM) 04/15/2017 12:17 PM Temp.: 99.1F Pulse: 107 (Regular) P.OX: 90% (Room air) BP: 89/57 (Sitting, Left Arm, Standard) PPLC vitals Physical Exam (Marjorie Law DO; 04/15/2017 2:58 PM) General Mental Status-Alert. General Appearance-Cooperative, Not in acute distress and Sickly. Hydration-Dehydrated(mild). Integumentary Assessment of surgical incision: Location - Groin, Buttocks, Genitalia - right buttock. Wound appearance: - Right - Note: large open wound right buttocks- malodorous when removed outer dressing. yellow/green tissue on packing and surrounding tissue. Skin surround wound without significant erythema. Did not repack wound as was done this morning. Redressed with alganate and tegaderm. Head and Neck Head-normocephalic, atraumatic with no lesions or palpable masses. Neck Normal Exam - No Lymphadenopathy. Global Assessment - mildly tender(paraspinal muscles). Eye Normal Exam-Extraocular movements intact and Conjunctiva normal. ENMT Mouth and Throat Oral Cavity/Oropharynx - Oral Mucosa - dry(mild). Oropharynx - No pharyngeal erythema, no evidence of airway distress observed. Chest and Lung Exam Chest and lung exam reveals -quiet, even and easy respiratory effort with no use of accessory muscles, No rales, ronchi, wheezes. Cardiovascular Cardiovascular examination reveals -No murmurs present. Auscultation Rhythm - Tachycardic(mildly). Heart Sounds - S1 WNL and S2 WNL. Abdomen Palpation/Percussion Palpation and Percussion of the abdomen reveal - Soft and Non Tender. Female Genitourinary Note: hernandez Peripheral Vascular Lower Extremity Palpation - Edema - Bilateral - No edema. Neurologic Note: Obvious muscle atrophy, limited use of hands, no motor strength in bilateral lower extremities, feet in socks Neuropsychiatric Mental status exam performed with findings of-Oriented X3 with appropriate mood and affect. Assessment & Plan (Marjorie Law DO; 04/15/2017 6:08 PM) Sepsis (A41.9) Impression: Patient meets sirs requirement with tachycardia and slightly elevated RR, CBC with slight elevation, does have slightly worsened hypotension from her baseline as well Probable sourse being decubitus ulcer right buttocks Will transition from [facility] to Med surg to start fluid resusciation and empiric antibiotics while awaiting futher culture results At this time do feel we can manage symptoms in our facility but will need to monitor closely (especially blood pressure) Decubitus ulcer of right buttock, stage 4 (L89.314) Impression: has had wound since January working with wound managment and Dr. Salinas Taken to OR for further debridement on Sunday but now with concern for infection Will empirically start antibiotics- culture from sunday growing grm positive cocci (no sensitivities) Start with vancomycin and Unasyn and can taper or transition to oral based on tolerance/blood culture results Will ask for surgical consult in AM to help manage. Multiple sclerosis (G35) Impression: Advanced and progressive MS- currently managed by Dr. Lock but not candidate for disease modifying agent has been at [facility] for 5 years at this time Tachycardia (R00.0) Impression: Noted in problem list- acute issues could be related to infection/ anemia will place on telemetry while attempting fuid resusication. Dehydration (E86.0) Impression: Mild- likely related to acute illnes IV fluids Chronic pain syndrome (G89.4) Impression: Will continue pain regimen from PP Urinary retention (R33.9) Impression: Chronic hernandez UA from sunday with some bacteria- did not see culture however will retest for further work up of sepsis Anemia (D64.9) Impression: Anemia noted- likely blood loss from surgical intervention and chronic disease Stable at this time but could be contributing to tachycardia. DNR (do not resuscitate) (Z66) Impression: Noted from [facility] records Note:Hospital admission from [facility] ([facility] for ongoing fevers/tachycardia/hypotension with worsening decubitus ulcer- concern for infection/sepsis Signed electronically by Marjorie Law DO (04/16/2017 10:09 AM) SARBJIT
== END 2017-04-16 09:14 | disposition short-term general hospital (02) | DRG 872 ==
LOC: IN 12:05
PROVIDERS: ADMIT Family Medicine; ATTEND Family Medicine
DX: A41.9 Sepsis, unspecified organism (principal); L89.314 Pressure ulcer of right buttock, stage 4; N39.0 Urinary tract infection, site not specified; G35 Multiple sclerosis; E46 Unspecified protein-calorie malnutrition; E87.6 Hypokalemia; E86.0 Dehydration; R00.0 Tachycardia, unspecified; G89.4 Chronic pain syndrome; R33.9 Retention of urine, unspecified; D64.9 Anemia, unspecified; M62.838 Other muscle spasm; R09.02 Hypoxemia; R63.4 Abnormal weight loss; M54.5 Low back pain; M50.90 Cervical disc disorder, unspecified, unspecified cervical region; M62.50 Muscle wasting and atrophy, not elsewhere classified, unspecified site; K21.9 Gastro-esophageal reflux disease without esophagitis; M81.0 Age-related osteoporosis without current pathological fracture; E04.1 Nontoxic single thyroid nodule; Z99.3 Dependence on wheelchair; Z79.899 Other long term (current) drug therapy
CPT/HCPCS: 36415; 80048; 80053; 80076; 83605; 85007; 85025; 85027; 85651; 86140; 87040; 93041; J0295; J2405; J3370; J3480; J7030; J7040; J7050